=== PATIENT | female | born 1980 | race Caucasian/White ===

== ENCOUNTER 2022-11-14 13:37 | Emergency (ER) | payer OTHER, SELFPAY ==
[2022-11-14 13:41] VITALS: BP 147/92; PULSE 101; RESP 18; TEMP 36.8; O2SAT 97; BMI 34.8
--- NOTE | 2022-11-14 13:43 | ED.EAR ---
HPI - Ear Problem General Chief complaint: Ear Problems <SPENSER Angel - Last Filed: 11/14/22 13:45> Stated complaint: Pain in R ear <SPENSER Angel - Last Filed: 11/14/22 13:45> Time Seen by Provider: 11/14/22 13:58 <SPENSER Angel - Last Filed: 11/14/22 13:45> History of Present Illness HPI Narrative: patient complains of right ear blockage from wax similar to prior episodes <SPENSER Oneal - Last Filed: 11/15/22 11:40> Related Data Allergies/adverse reactions: Allergies Allergy/AdvReac Type Severity Reaction Status Date / Time No Known Allergies Allergy Verified 11/14/22 13:41 <SPENSER Angel - Last Filed: 11/14/22 13:45> Review of Systems Review of Systems: positive for decreased hearing in the right ear Negatives no fever no chills no ear pain no ear discharge no sinus congestion no skin <SPENSER Oneal - Last Filed: 11/15/22 11:40> Yes all other systems are reviewed and are negative <SPENSER Oneal - Last Filed: 11/15/22 11:40> [facility] Past Medical History Source: nursing notes reviewed <SPENSER Oneal - Last Filed: 11/15/22 11:40> Social History Social History: Social History Advance Directives: No Advance Directives Information Provided: No <SPENSER Angel - Last Filed: 11/14/22 13:45> Physical Exam Vital Signs: Vital Signs: Last Vital Signs Temp 98.2 F 11/14/22 13:41 Pulse 101 H 11/14/22 13:41 Resp 18 11/14/22 13:41 BP 147/92 H 11/14/22 13:41 Pulse Ox 97 11/14/22 13:41 O2 Del Method 11/14/22 13:41 BMI result Body Mass Index 34.8 <SPENSER Angel - Last Filed: 11/14/22 13:45> Vital Signs: Last Vital Signs Temp 98.2 F 11/14/22 13:41 Pulse 101 H 11/14/22 13:41 Resp 18 11/14/22 13:41 BP 147/92 H 11/14/22 13:41 Pulse Ox 97 11/14/22 13:41 O2 Del Method 11/14/22 13:41 BMI result Body Mass Index 34.8 <SPENSER Oneal - Last Filed: 11/15/22 11:40> exam general appearance no distress the eyes no redness or discharge sinuses not congested ears the right ear is blocked by cerumen The left ear is normal with normal tympanic membrane normal canal Respiratory no distress Extremities full range of motion x4 Skin no rash <SPENSER Oneal - Last Filed: 11/15/22 11:40> Course Course Course Narrative: RME-13:45PM - 41yoF presenting to the ED c c/o decreased hearing/cerumen impaction to the right ear over the past month. Reports that she is currently on medication to soften up the wax although this is not helping her. She has gone to her primary care provider and they have flush her ears and her left ear is improved but her right ear is completely blocked. She is requesting for ear to be flushed. She reports associated headaches, nasal congestion a sore throat. Denies any other symptoms complaints or concerns at this time On exam patient has rates remove an impaction. Left ear is within normal limits no cerumen impaction. Patient will need cerumen disimpaction. Patient is able to go to [facility] [place]. <SPENSER Angel - Last Filed: 11/14/22 13:45> RME-13:45PM - 41yoF presenting to the ED c c/o decreased hearing/cerumen impaction to the right ear over the past month. Reports that she is currently on medication to soften up the wax although this is not helping her. She has gone to her primary care provider and they have flush her ears and her left ear is improved but her right ear is completely blocked. She is requesting for ear to be flushed. She reports associated headaches, nasal congestion a sore throat. Denies any other symptoms complaints or concerns at this time On exam patient has rates remove an impaction. Left ear is within normal limits no cerumen impaction. Patient will need cerumen disimpaction. Patient is able to go to [facility] [place]. Patient with cerumen impaction in the right ear It was irrigated the wax was easily removed After removal of wax tympanic membrane was intact it was easily visible normal in color and canal was patent without foreign body <SPENSER Oneal - Last Filed: 11/15/22 11:40> Discharge Plan Discharge Clinical Impression: Impacted ear wax <SPENSER Angel - Last Filed: 11/14/22 13:45> Patient Disposition: Home, Self-Care <SPENSER Angel - Last Filed: 11/14/22 13:45> Additional Instructions: wax was removed by irrigating with water You can use gbgm-cap-epcftta products to soften the wax which may help prevent it happening again Return any concerns After irrigation the tympanic membrane was visible and there was no more wax visible in the canal <SPENSER Angel - Last Filed: 11/14/22 13:45> Interventions: ED Discharge Assessment Last Done: 11/14/22 14:32 <SPENSER Angel - Last Filed: 11/14/22 13:45> Discharge Date/Time: 11/14/22 14:34 <SPENSER Angel - Last Filed: 11/14/22 13:45>
== END 2022-11-14 14:34 | disposition home or self-care (01) ==
PROVIDERS: Emergency Provider Emergency Medicine; PCP Nurse Practitioner Psychiatric/Mental Health
DX: H61.21 Impacted cerumen, right ear (principal); H92.01 Otalgia, right ear
CPT/HCPCS: 69209; 99283

== ENCOUNTER 2023-02-11 18:05 | Emergency (ER) | payer OTHER, SELFPAY ==
--- NOTE | 2023-02-11 | ECG_ITS ---
Test Reason : CHEST PAIN Blood Pressure : / mmHG Vent. Rate : 083 BPM Atrial Rate : 083 BPM P-R Int : 160 ms QRS Dur : 082 ms QT Int : 360 ms P-R-T Axes : 037 011 044 degrees QTc Int : 423 ms Normal sinus rhythm Normal ECG No previous ECGs available Referred By: Generic ED Physician Electronically Signed By:Jj Wilkins
--- NOTE | ~2023-02-11 | XR_ITS ---
EXAMINATION: XR CHEST CLINICAL INFORMATION: Chest pain COMPARISON: None available. TECHNIQUE: Frontal view of the chest was obtained. FINDINGS: There is mild peribronchial thickening present but otherwise no additional significant abnormality is noted involving the heart, lungs, mediastinum, bony thorax or soft tissues. XR/XR chest 1V IMPRESSION: Mild peribronchial thickening. No acute intrathoracic disease.
[2023-02-11 18:18] VITALS: BP 132/88; PULSE 100; RESP 18; TEMP 36.7; O2SAT 97; BMI 34.0
--- NOTE | 2023-02-11 18:18 | ED_ITS ---
HPI - Chest Pain General Chief Complaint: Chest Pain <SPENSER Pollard - Last Filed: 02/11/23 18:24> Stated Complaint: Chest pain X 3 days/rash <SPENSER Pollard - Last Filed: 02/11/23 18:24> Time Seen by Provider: 02/11/23 21:39 <SPENSER Pollard - Last Filed: 02/11/23 18:24> Source: patient, RN notes reviewed and recorder helper seismograph <Ayo Amaya - Last Filed: 02/11/23 22:18> Mode of arrival: ambulatory <Ayo Amaya - Last Filed: 02/11/23 22:18> Limitations: language barrier <Ayo Amaya - Last Filed: 02/11/23 22:18> History of Present Illness HPI narrative: 42-year-old female presents for evaluation of chest pain, cough and a rash. Patient reports that she has had chest tightness and shortness of breath for the last 3 days She reports that she has had a cough for the last 3 months Patient resides at a woman's custodial Denies any change to her living situation recently. She does state that 2 weeks ago she ?used a new body wash, but I having his to scents and my rash isn't going away. ? He states that her rashes to her entire body and extremely itchy Denies any history of cardiac disease <Ayo Amaya - Last Filed: 02/11/23 22:18> Related Data Home Medications: Previous Rx's Medication Instructions Recorded azithromycin 250 mg tablet See Rx Instructions PO .COMPLEX #6 02/11/23 tabs permethrin 5 % topical cream 1 appl topical Q14D 2 doses #60 02/11/23 grams prednisone 20 mg tablet 40 mg PO DAILY #10 tabs 02/11/23 <SPENSER Pollard - Last Filed: 02/11/23 18:24> Allergies/Adverse Reactions: Allergies Allergy/AdvReac Type Severity Reaction Status Date / Time No Known Allergies Allergy Verified 02/11/23 18:17 <SPENSER Pollard - Last Filed: 02/11/23 18:24> Review of Systems Constitutional: Constitutional: Reports as per HPI, Denies chills, Denies fatigue, Denies fever(s) and Denies headache(s) <Ayo Zavalay - Last Filed: 02/11/23 22:18> ENT: Denies headache(s) <Ayo OLone Pine - Last Filed: 02/11/23 22:18> Cardiovascular: Cardiovascular: Reports chest pain and Reports dyspnea <Ayo AlexanderLone Pine - Last Filed: 02/11/23 22:18> Respiratory: Respiratory: Reports cough and Reports dyspnea <Ayo O'Jason - Last Filed: 02/11/23 22:18> Gastrointestinal: Gastrointestinal: Denies abdominal pain, Denies constipation and Denies vomiting <Ayo FranciscoLone Pine - Last Filed: 02/11/23 22:18> Genitourinary: Genitourinary: Denies dysuria <Ayo AlexanderLone Pine - Last Filed: 02/11/23 22:18> Integumentary/Breasts: Skin/Breast: Reports rash <Ayo Zavalay - Last Filed: 02/11/23 22:18> Neurologic: Denies headache(s) and Denies focal weakness <Ayo Amaya - Last Filed: 02/11/23 22:18> Endocrine: Endocrine: Denies fatigue <Ayo Amaya - Last Filed: 22:18> REPLACED BY [facility] Social History Social History: Social History Advance Directives: No Advance Directives Information Provided: No <SPENSER Pollard - Last Filed: 02/11/23 18:24> Physical Exam Vital Signs: Vital Signs: Last Vital Signs Temp 98.1 F 02/11/23 18:18 Pulse 100 02/11/23 18:18 Resp 18 02/11/23 18:18 BP 132/88 02/11/23 18:18 Pulse Ox 97 02/11/23 18:18 O2 Del Method 02/11/23 18:18 BMI result Body Mass Index 34.0 <SPENSER Pollard - Last Filed: 02/11/23 18:24> Vital Signs: Last Vital Signs Temp 98.1 F 02/11/23 18:18 Pulse 100 02/11/23 18:18 Resp 18 02/11/23 18:18 BP 132/88 02/11/23 18:18 Pulse Ox 97 02/11/23 18:18 O2 Del Method 02/11/23 18:18 BMI result Body Mass Index 34.0 < - Last Filed: 02/11/23 22:18> Const: General: healthy appearing, comfortable, no acute distress, alert and awake < - Last Filed: 02/11/23 22:18> Nutritional Appearance: well nourished < - Last Filed: 02/11/23 22:18> Orientation/consciousness: patient oriented x3 < - Last Filed: 02/11/23 22:18> HEENT: Head: Yes normocephalic and Yes atraumatic < - Last Filed: 02/11/23 22:18> Throat: Yes posterior oropharynx normal < - Last Filed: 02/11/23 22:18> Eyes: Eyelids: Yes eyelids normal < - Last Filed: 02/11/23 22:18> Conjunctivae: conjunctivae normal < - Last Filed: 02/11/23 22:18> Sclerae: sclerae normal < - Last Filed: 02/11/23 22:18> Corneas: corneas normal < - Last Filed: 02/11/23 22:18> Pupils: Equal, round and reactive pupils present < - Last Filed: 02/11/23 22:18> EOM: EOMs intact bilaterally < - Last Filed: 02/11/23 22:18> Neck: Neck: Yes full ROM < - Last Filed: 02/11/23 22:18> Resp: Effort & Inspection: normal respiratory effort, able to speak in complete sentences, no audible wheezes and not labored < - Last Filed: 02/11/23 22:18> Auscultation: clear to auscultation bilaterally < - Last Filed: 02/11/23 22:18> Cardio: Rate: regular rate < - Last Filed: 02/11/23 22:18> Rhythm: regular rhythm <Ayo Amaya - Last Filed: 02/11/23 22:18> GI: Inspection: No distended <Ayo Amaya - Last Filed: 02/11/23 22:18> Palpation (GI): Soft to palpation, not firm, nontender, no guarding and not rigid <Ayo Amaya - Last Filed: 02/11/23 22:18> Auscultation: normoactive bowel sounds <Ayohussain Amaya - Last Filed: 02/11/23 22:18> Skin: Other: There are radiations mostly to the bilateral lower extremities above also evident on the bilateral upper extremities to a lesser extent and torso. No significant erythema or skin color changes <Ayo Amaya - Last Filed: 02/11/23 22:18> General skin exam: elasticity normal <Ayohussain Amaya - Last Filed: 02/11/23 22:18> Neuro: General: patient oriented x3 <Ayo Amaya - Last Filed: 02/11/23 22:18> Cranial nerves: Yes CN's II-XII intact bilaterally, Yes Equal, round and reactive pupils present and Yes Bilaterally intact EOM present <Ayo Amaya - Last Filed: 02/11/23 22:18> Cognition (Neuro): normal cognition <Ayo Amaya - Last Filed: 02/11/23 22:18> Course Course Course Narrative: RME--42 yo F w/no sig PMHx c/o dry cough x3 mos and intermittent chest pain x3 days w/assoc SOB. also reports diffuse body pruritic rash Vital signs stable. Linear excoriations noted ?scabies labs, EKG, CXR, COVID/FLU ordered <SPENSER Pollard - Last Filed: 02/11/23 18:24> Medical Decision Making Medical Decision Making MDM Narrative: 42-year-old female presents for evaluation of shortness of breath or cough as well as a rash. Patient's cough is likely attributed to the acute bronchitis as seen on the patient's chest x-ray. This will be treated with azithromycin and prednisone. There is no evidence of pneumonia. The patient is well signs are stable. Her rash is concerning for scabies in the patient does reside at custodial, we will treat her with permethrin. This was discussed with the patient. EKG nonischemic, troponin is negative despite his chest pain, this rules out ACS <Ayo AlexanderKelvinJason - Last Filed: 02/11/23 22:18> Differential Diagnosis Bronchitis Chest pain Pneumonia ACS less likely Acute rash Dermatitis Scabies <Ayo Amaya - Last Filed: 02/11/23 22:18> Lab Data MDM Lab Attestation statement: I reviewed the patient's lab results. <Ayo AlexanderKelvinJason - Last Filed: 02/11/23 22:18> Result Diagrams: 02/11/23 19:21 02/11/23 19:21 <SPENSER Pollard - Last Filed: 02/11/23 18:24> Labs: Lab Results 02/11/23 02/11/23 02/11/23 Range/Units 19:21 19:21 19:21 WBC 5.5 (4.8-10.8) X10*3/uL RBC 4.53 (4.20-5.50) X10*6/uL Hgb 13.7 (12.0-16.0) g/dl Hct 40.1 (37.0-47.0) % MCV 88.5 (80.0-98.0) fL MCH 30.2 (27.0-33.0) pg MCHC 34.2 (31.0-35.0) g/dl RDW 13.4 (11.0-16.0) % Plt Count 354 (160-400) X10*3/uL MPV 9.7 (9.4-12.3) fL Immature Gran % (Auto) 0.2 (0.0-0.4) % Neut % (Auto) 39.5 L (45-73) % Lymph % (Auto) 45.2 H (20-40) % Caswell % (Auto) 11.3 H (2-11) % Eos % (Auto) 3.1 (0-4) % Baso % (Auto) 0.7 (0-2) % Lymph # (Auto) 2.5 (1.2-4.9) X10*3/uL Caswell # (Auto) 0.6 (0.1-1.2) X10*3/uL Eos # (Auto) 0.2 (0.0-0.4) X10*3/uL Baso # (Auto) 0.0 (0.0-0.2) X10*3/uL Abs Immat Gran (auto) 0.01 (0.00-0.03) X10*3/uL Absolute Neuts (auto) 2.2 (2.0-8.3) x10*3/uL Absolute Nucleated RBC 0.000 (0.0-0.012) X10*3/uL Nucleated RBC % (auto) 0.0 (0.0-0.2) /100WBC Sodium 137 (135-145) mmol/L Potassium 3.6 (3.3-5.1) mmol/L Chloride 103 (96-108) mmol/L Carbon Dioxide 24 (22-29) mmol/L Anion Gap 14 (12-20) BUN 8 L (9-16) mg/dL Creatinine 0.79 (0.5-1.4) mg/dL Estim Creat Clear Calc 109.2 Estimated GFR > 60 Random Glucose 100 (60-115) mg/dL Calcium 9.6 (8.4-10.2) mg/dL Total Bilirubin 0.2 (0.0-1.0) mg/dL Direct Bilirubin < 0.2 (0.0-0.5) mg/dL AST 16 (5-31) U/L ALT 17 (0-31) U/L Alkaline Phosphatase 83 (39-117) U/L Troponin I High Sens (<3.5-17.0) ng/L Total Protein 7.0 (6.5-8.0) g/dL Albumin 4.0 (3.5-5.0) g/dL COVID-19 (LACIE) (Negative) COVID-19 Clin Com Influenza Type A (CANDACE) Negative (Negative) Influenza Type B (CANDACE) Negative (Negative) Influenza A & B Note See Note 02/11/23 02/11/23 Range/Units 19:21 19:21 WBC (4.8-10.8) X10*3/uL RBC (4.20-5.50) X10*6/uL Hgb (12.0-16.0) g/dl Hct (37.0-47.0) % MCV (80.0-98.0) fL MCH (27.0-33.0) pg MCHC (31.0-35.0) g/dl RDW (11.0-16.0) % Plt Count (160-400) X10*3/uL MPV (9.4-12.3) fL Immature Gran % (Auto) (0.0-0.4) % Neut % (Auto) (45-73) % Lymph % (Auto) (20-40) % Caswell % (Auto) (2-11) % Eos % (Auto) (0-4) % Baso % (Auto) (0-2) % Lymph # (Auto) (1.2-4.9) X10*3/uL Caswell # (Auto) (0.1-1.2) X10*3/uL Eos # (Auto) (0.0-0.4) X10*3/uL Baso # (Auto) (0.0-0.2) X10*3/uL Abs Immat Gran (auto) (0.00-0.03) X10*3/uL Absolute Neuts (auto) (2.0-8.3) x10*3/uL Absolute Nucleated RBC (0.0-0.012) X10*3/uL Nucleated RBC % (auto) (0.0-0.2) /100WBC Sodium (135-145) mmol/L Potassium (3.3-5.1) mmol/L Chloride (96-108) mmol/L Carbon Dioxide (22-29) mmol/L Anion Gap (12-20) BUN (9-16) mg/dL Creatinine (0.5-1.4) mg/dL Estim Creat Clear Calc Estimated GFR Random Glucose (60-115) mg/dL Calcium (8.4-10.2) mg/dL Total Bilirubin (0.0-1.0) mg/dL Direct Bilirubin (0.0-0.5) mg/dL AST (5-31) U/L ALT (0-31) U/L Alkaline Phosphatase (39-117) U/L Troponin I High Sens < 3.5 (<3.5-17.0) ng/L Total Protein (6.5-8.0) g/dL Albumin (3.5-5.0) g/dL COVID-19 (LACIE) Negative (Negative) COVID-19 Clin Com See Note Influenza Type A (CANDACE) (Negative) Influenza Type B (CANDACE) (Negative) Influenza A & B Note <SPENSER Pollard - Last Filed: 02/11/23 18:24> Lab Results 02/11/23 02/11/23 02/11/23 Range/Units 19:21 19:21 19:21 WBC 5.5 (4.8-10.8) X10*3/uL RBC 4.53 (4.20-5.50) X10*6/uL Hgb 13.7 (12.0-16.0) g/dl Hct 40.1 (37.0-47.0) % MCV 88.5 (80.0-98.0) fL MCH 30.2 (27.0-33.0) pg MCHC 34.2 (31.0-35.0) g/dl RDW 13.4 (11.0-16.0) % Plt Count 354 (160-400) X10*3/uL MPV 9.7 (9.4-12.3) fL Immature Gran % (Auto) 0.2 (0.0-0.4) % Neut % (Auto) 39.5 L (45-73) % Lymph % (Auto) 45.2 H (20-40) % Caswell % (Auto) 11.3 H (2-11) % Eos % (Auto) 3.1 (0-4) % Baso % (Auto) 0.7 (0-2) % Lymph # (Auto) 2.5 (1.2-4.9) X10*3/uL Caswell # (Auto) 0.6 (0.1-1.2) X10*3/uL Eos # (Auto) 0.2 (0.0-0.4) X10*3/uL Baso # (Auto) 0.0 (0.0-0.2) X10*3/uL Abs Immat Gran (auto) 0.01 (0.00-0.03) X10*3/uL Absolute Neuts (auto) 2.2 (2.0-8.3) x10*3/uL Absolute Nucleated RBC 0.000 (0.0-0.012) X10*3/uL Nucleated RBC % (auto) 0.0 (0.0-0.2) /100WBC Sodium 137 (135-145) mmol/L Potassium 3.6 (3.3-5.1) mmol/L Chloride 103 (96-108) mmol/L Carbon Dioxide 24 (22-29) mmol/L Anion Gap 14 (12-20) BUN 8 L (9-16) mg/dL Creatinine 0.79 (0.5-1.4) mg/dL Estim Creat Clear Calc 109.2 Estimated GFR > 60 Random Glucose 100 (60-115) mg/dL Calcium 9.6 (8.4-10.2) mg/dL Total Bilirubin 0.2 (0.0-1.0) mg/dL Direct Bilirubin < 0.2 (0.0-0.5) mg/dL AST 16 (5-31) U/L ALT 17 (0-31) U/L Alkaline Phosphatase 83 (39-117) U/L Troponin I High Sens (<3.5-17.0) ng/L Total Protein 7.0 (6.5-8.0) g/dL Albumin 4.0 (3.5-5.0) g/dL COVID-19 (LACIE) (Negative) COVID-19 Clin Com Influenza Type A (CANDACE) Negative (Negative) Influenza Type B (CANDACE) Negative (Negative) Influenza A & B Note See Note 02/11/23 02/11/23 Range/Units 19:21 19:21 WBC (4.8-10.8) X10*3/uL RBC (4.20-5.50) X10*6/uL Hgb (12.0-16.0) g/dl Hct (37.0-47.0) % MCV (80.0-98.0) fL MCH (27.0-33.0) pg MCHC (31.0-35.0) g/dl RDW (11.0-16.0) % Plt Count (160-400) X10*3/uL MPV (9.4-12.3) fL Immature Gran % (Auto) (0.0-0.4) % Neut % (Auto) (45-73) % Lymph % (Auto) (20-40) % Caswell % (Auto) (2-11) % Eos % (Auto) (0-4) % Baso % (Auto) (0-2) % Lymph # (Auto) (1.2-4.9) X10*3/uL Caswell # (Auto) (0.1-1.2) X10*3/uL Eos # (Auto) (0.0-0.4) X10*3/uL Baso # (Auto) (0.0-0.2) X10*3/uL Abs Immat Gran (auto) (0.00-0.03) X10*3/uL Absolute Neuts (auto) (2.0-8.3) x10*3/uL Absolute Nucleated RBC (0.0-0.012) X10*3/uL Nucleated RBC % (auto) (0.0-0.2) /100WBC Sodium (135-145) mmol/L Potassium (3.3-5.1) mmol/L Chloride (96-108) mmol/L Carbon Dioxide (22-29) mmol/L Anion Gap (12-20) BUN (9-16) mg/dL Creatinine (0.5-1.4) mg/dL Estim Creat Clear Calc Estimated GFR Random Glucose (60-115) mg/dL Calcium (8.4-10.2) mg/dL Total Bilirubin (0.0-1.0) mg/dL Direct Bilirubin (0.0-0.5) mg/dL AST (5-31) U/L ALT (0-31) U/L Alkaline Phosphatase (39-117) U/L Troponin I High Sens < 3.5 (<3.5-17.0) ng/L Total Protein (6.5-8.0) g/dL Albumin (3.5-5.0) g/dL COVID-19 (LACIE) Negative (Negative) COVID-19 Clin Com See Note Influenza Type A (CANDACE) (Negative) Influenza Type B (CANDACE) (Negative) Influenza A & B Note <Ayo Amaya - Last Filed: 02/11/23 22:18> Independent Interpretation I performed an independent interpretation of an: EKG and Plain X-Ray (No infiltrates noted on chest x-ray) <Ayo Amaya - Last Filed: 02/11/23 22:18> Interpretation: EKG sinus rhythm with a rate of 83 beats per minute. No ectopy or ST changes <Ayo Amaya - Last Filed: 02/11/23 22:18> Discharge Plan Discharge Clinical Impression: Chest pain, Acute bronchitis, Scabies <SPENSER Pollard Last Filed: 02/11/23 18:24> Patient Disposition: Home, Self-Care <SPENSER Pollard Last Filed: 02/11/23 18:24> Instructions: Scabies (ED), Acute Bronchitis (ED) <SPENSER Pollard Last Filed: 02/11/23 18:24> Additional Instructions: Your chest pain is most likely related to the acute bronchitis seen on your chest x-ray. Take azithromycin and prednisone as directed to treat this Your rash is concerning for scabies. Apply permethrin to your entire body except your face before bed and leave it on all night to shower off in the morning <SPENSER Pollard Last Filed: 02/11/23 18:24> Prescriptions: New azithromycin 250 mg tablet See Rx Instructions .ROUTE .COMPLEX Qty: 6 0RF Rx Instructions: For 250 mg dose pack: take 500 mg today (day 1), then 250 mg for 4 days (days 2-5) prednisone 20 mg tablet 40 mg PO DAILY Qty: 10 0RF permethrin 5 % cream 1 appl topical Q14D Qty: 60 0RF Rx Instructions: apply second treatment 14 days after first treatment if live lice remain <SPENSER Pollard Last Filed: 02/11/23 18:24> Stand Alone Forms: Work/School Release <SPENSER Pollard Last Filed: 02/11/23 18:24>
[2023-02-11 19:25] LABS: MANUAL DIFF FLAG NO
[2023-02-11 19:27] LABS: Basophils Percent Auto 0.7 % (0-2); Eosinophils Absolute Auto 0.2 X10*3/uL (0.0-0.4); Eosinophils Percent Auto 3.1 % (0-4); Hematocrit 40.1 % (37.0-47.0); Hemoglobin 13.7 g/dl (12.0-16.0); Imm Gran Abs Auto 0.01 X10*3/uL (0.00-0.03); Imm Gran Pct Auto 0.2 % (0.0-0.4); Lymphocytes Absolute Auto 2.5 X10*3/uL (1.2-4.9); Lymphocytes Percent Auto 45.2 % (20-40); Mean Corpuscular HGB Conc 34.2 g/dl (31.0-35.0); Mean Corpuscular Hemoglobin 30.2 pg (27.0-33.0); Mean Corpuscular Volume 88.5 fL (80.0-98.0); Mean Platelet Volume 9.7 fL (9.4-12.3); Monocytes Absolute Auto 0.6 X10*3/uL (0.1-1.2); Monocytes Percent Auto 11.3 % (2-11); Neutrophils Absolute Auto 2.2 x10*3/uL (2.0-8.3); Neutrophils Percent Auto 39.5 % (45-73); Platelet Count 354 X10*3/uL (160-400); Red Blood Count 4.53 X10*6/uL (4.20-5.50); Red Cell Distribution Width 13.4 % (11.0-16.0); White Blood Count 5.5 X10*3/uL (4.8-10.8)
[2023-02-11 19:42] LABS: Alanine Aminotransferase 17 U/L (0-31); Alkaline Phosphatase 83 U/L (39-117); Anion Gap 14 (12-20); Aspartate Amino Transferase 16 U/L (5-31); Bilirubin Direct < 0.2 mg/dL (0.0-0.5); Bilirubin Total 0.2 mg/dL (0.0-1.0); Blood Urea Nitrogen 8 mg/dL (9-16); Calcium 9.6 mg/dL (8.4-10.2); Carbon Dioxide 24 mmol/L (22-29); Chloride 103 mmol/L (96-108); Creatinine Clr Calc Pharmacy 109.2; Estimated Glomerular Filt Rate > 60; Glucose Random 100 mg/dL (60-115); Potassium 3.6 mmol/L (3.3-5.1); Sodium 137 mmol/L (135-145)
[2023-02-11 19:49] LABS: IDNOW Serial# 55D5AD1C; Influenza A Negative (Negative); Influenza B2 Negative (Negative); Troponin-I High Sensitivity < 3.5 ng/L (<3.5-17.0)
[2023-02-11 19:50] LABS: COVID-19 Test Negative (Negative); IDNOW Serial# 08D9AD1C
== END 2023-02-11 22:40 | disposition home or self-care (01) ==
PROVIDERS: Physician Assistant; Emergency Provider Emergency Medicine; PCP Nurse Practitioner Psychiatric/Mental Health
DX: R07.9 Chest pain, unspecified (principal); J20.9 Acute bronchitis, unspecified; B86 Scabies; Z20.822 Contact with and (suspected) exposure to COVID-19; R06.02 Shortness of breath
CPT/HCPCS: 36415; 71045; 80048; 80076; 84484; 85025; 87502; 87635; 93005; 99283; 99284

== ENCOUNTER 2023-12-29 20:53 | Emergency (ER) | payer MEDICAID, SELFPAY ==
--- NOTE | ~2023-12-29 | XR_ITS ---
EXAMINATION: XR CHEST CLINICAL INFORMATION: Pain. Shortness of breath. COMPARISON: Previous chest x-ray January 2023 TECHNIQUE: Frontal view of the chest was obtained. FINDINGS: No significant abnormality is noted involving the heart, lungs, mediastinum, bony thorax or soft tissues. XR/XR chest 1V IMPRESSION: Unremarkable examination.
--- NOTE | 2023-12-29 20:55 | ECG_ITS ---
Test Reason : CHEST PAIN Blood Pressure : / mmHG Vent. Rate : 089 BPM Atrial Rate : 089 BPM P-R Int : 160 ms QRS Dur : 078 ms QT Int : 334 ms P-R-T Axes : 049 023 038 degrees QTc Int : 406 ms Normal sinus rhythm Normal ECG When compared with ECG of 11-FEB-2023 19:04, No significant change was found Referred By: Generic ED Physician Electronically Signed By:PENNY BLOUNT MD
[2023-12-29 21:02] VITALS: BP 126/84; PULSE 88; RESP 16; TEMP 36.6; O2SAT 98; BMI 32.9
--- NOTE | 2023-12-29 21:02 | MHC.EDTECH ---
EKG done and handed to provider
[2023-12-29 21:26] LABS: MANUAL DIFF FLAG NO
[2023-12-29 21:27] LABS: Basophils Absolute Auto 0.1 X10*3/uL (0.0-0.2); Basophils Percent Auto 0.7 % (0-2); Eosinophils Absolute Auto 0.1 X10*3/uL (0.0-0.4); Eosinophils Percent Auto 1.9 % (0-4); Hematocrit 37.2 % (37.0-47.0); Hemoglobin 12.8 g/dl (12.0-16.0); Imm Gran Abs Auto 0.02 X10*3/uL (0.00-0.03); Imm Gran Pct Auto 0.3 % (0.0-0.4); Lymphocytes Absolute Auto 2.6 X10*3/uL (1.2-4.9); Mean Corpuscular HGB Conc 34.4 g/dl (31.0-35.0); Mean Corpuscular Hemoglobin 30.3 pg (27.0-33.0); Mean Corpuscular Volume 88.2 fL (80.0-98.0); Mean Platelet Volume 9.5 fL (9.4-12.3); Monocytes Absolute Auto 0.6 X10*3/uL (0.1-1.2); Monocytes Percent Auto 8.1 % (2-11); Neutrophils Absolute Auto 3.9 x10*3/uL (2.0-8.3); Platelet Count 357 X10*3/uL (160-400); Red Blood Count 4.22 X10*6/uL (4.20-5.50); Red Cell Distribution Width 13.5 % (11.0-16.0); White Blood Count 7.3 X10*3/uL (4.8-10.8)
[2023-12-29 21:32] LABS: IDNOW Serial# 6674DD1D; Strep A Nucleic Acid Positive (Negative)
[2023-12-29 21:40] LABS: Alanine Aminotransferase 15 U/L (0-31); Alkaline Phosphatase 74 U/L (39-117); Anion Gap 12 (12-20); Aspartate Amino Transferase 16 U/L (5-31); Bilirubin Total 0.2 mg/dL (0.0-1.0); Blood Urea Nitrogen 10 mg/dL (9-16); COVID-19 Test Negative (Negative); Calcium 9.5 mg/dL (8.4-10.2); Carbon Dioxide 23 mmol/L (22-29); Chloride 106 mmol/L (96-108); Creatinine Clr Calc Pharmacy 101.2; Estimated Glomerular Filt Rate > 60; Glucose Random 93 mg/dL (60-115); IDNOW Serial# 55D5AD1C; Potassium 3.6 mmol/L (3.3-5.1); Sodium 137 mmol/L (135-145); Total Protein 7.2 g/dL (6.5-8.0)
[2023-12-29 21:42] LABS: IDNOW Serial# 16C4AD1C; Influenza A Negative (Negative); Influenza B2 Negative (Negative)
[2023-12-29 21:49] LABS: Troponin-I High Sensitivity < 2.7 ng/L (<3.5-17.0)
== END 2023-12-30 00:10 | disposition left against medical advice (07) ==
PROVIDERS: Emergency Provider Emergency Medicine
DX: J02.0 Streptococcal pharyngitis (principal); R06.02 Shortness of breath; Z11.52 Encounter for screening for COVID-19
CPT/HCPCS: 36415; 71045; 80053; 84484; 85025; 87502; 87635; 87651; 93005; 99283

== ENCOUNTER → 2023-12-29 20:55 | Outpatient (BNV) | payer MEDICAID, SELFPAY | PROVIDERS: Emergency Provider Emergency Medicine; Visit Provider Internal Medicine Cardiovascular Disease | DX: R07.9 Chest pain, unspecified (principal) | CPT/HCPCS: 93010 ==